=== PATIENT | male | born 1975 | race Caucasian/White ===

== ENCOUNTER 2020-04-17 12:32 | Day surgery (SDC) | payer OTHER ==
[~2020-04-17] VITALS: Ht 167.6 cm; Wt 120.0 kg
[2020-04-17] MEDS ORDERED: LIDOCAINE 1%, 10ML ONE (12:50)
[2020-04-17] MEDS ORDERED: LIDOCAINE-MPF 1%, 5ML ONE ×2 (12:52→13:25)
[2020-04-17 13:25] VITALS: BP 138/92
[2020-04-17] MEDS ORDERED: SODIUM CHLORIDE 0.9% 1,000 ML IV SCH (13:30)
[2020-04-17 15:27] LABS: BASOPHILS % (AUTO) 1 % (0-1); EOSINOPHILS % (AUTO) 2 % (1-7); LYMPHOCYTES % (AUTO) 29 % (22-44); MEAN CORPUSCULAR HEMOGLOBIN 32.2 pg (27.5-34.5); MEAN CORPUSCULAR HGB CONC 34.5 g/dL (33.2-36.2); MEAN PLATELET VOLUME 12.1 fL (7.4-10.4); MONOCYTES % (AUTO) 10 % (2-9); NEUTROPHILS % (AUTO) 59 % (42-75); PLATELET COUNT 180 x10^3/uL (130-400); RED BLOOD COUNT 4.88 x10^6/uL (4.38-5.82); RED CELL DISTRIBUTION WIDTH 13.4 % (9.4-14.8)
[2020-04-17 15:28] LABS: MD NO
[2020-04-17 16:10] LABS: GLUCOSE, CSF 50 mg/dL (40-80); TOTAL PROTEIN,CSF 76 mg/dL (15-45)
[2020-04-17 16:22] LABS: INTERNATIONAL NORMALIZED RATIO 0.99 (0.93-1.1); PROTHROMBIN TIME 10.6 Seconds (9.6-11.5)
== END 2020-04-17 17:38 | disposition home or self-care (01) ==
LOC: RAD 12:32
PROVIDERS: ATTEND Nurse Practitioner Family
DX: G44.89 Other headache syndrome (principal); G25.2 Other specified forms of tremor; I10 Essential (primary) hypertension; Z79.01 Long term (current) use of anticoagulants
CPT/HCPCS: 36415; 62328; 82945; 84157; 85025; 85610; 85730; 86645; 86695; 86696; 86762; 86777; 86778; 89051